=== PATIENT | male | born 1975 | race Caucasian/White ===

== ENCOUNTER 2018-05-19 17:39 | Observation (INO) ==
[2018-05-19] MEDS ORDERED: Aspirin 81 MG TAB.CHEW PO ONE (17:48)
--- NOTE | 2018-05-19 18:51 | Emergency Department Note ---
Disposition Clinical Impression: Unstable angina, Alcoholism, Hepatitis C Cirrhosis Qualifiers: Hepatic cirrhosis type: alcoholic cirrhosis Ascites presence: unspecified Qualified Code(s): K70.30 - Alcoholic cirrhosis of liver without ascites Disposition: Still a Patient Referrals: NONE,PCP [Primary Care Provider] - Forms: ED Satisfaction Letter Chest Pain HPI - General Chief Complaint: ED Chest Pain Stated Complaint: chest pain, feet swelling Time Seen by Provider: 05/19/18 17:48 Source: patient Limitations: no limitations Vital Signs Reviewed: Yes Nursing Notes Reviewed: Yes - History of Present Illness HPI Narrative: 43-year-old male present emergency room for chest pain and bilateral leg pain and swelling. Patient is a known drinker. Last alcohol intake was around 2 PM today. He does have a history of cirrhosis and hep C. He states his legs have been getting more red and swollen to the point where he is having problems even walking on his legs. He also states that he has been having chest pain for the past couple days intermittently. He does have a history of congestive heart failure. No history of coronary artery disease. No previous stent placement. No other complaints at this time. Symptoms are worse with activity. Better at rest. Severity scale (1-10): 10 - Related Data Home Medications Medication Instructions Recorded Confirmed Zolpidem [Ambien] 10 mg PO HS 05/13/18 05/13/18 Previous Rx's Medication Instructions Recorded Bumetanide [Bumex] 0.5 mg PO DAILY #5 tablet 05/15/18 Gabapentin [Neurontin] 400 mg PO TID 10 Days #30 capsule 05/15/18 LORazepam [Ativan] 1 mg PO TID PRN 5 Days #15 tablet 05/15/18 Lactobacillus [Culturelle] 1 each PO BID #4 cap.sprink 05/15/18 Magnesium Oxide [Mag-Ox] 400 mg PO DAILY #10 tablet 05/15/18 Potassium Chloride 10 meq PO DAILY #10 tab.er.prt 05/15/18 cephALEXin [Keflex] 500 mg PO TID #6 capsule 05/15/18 Allergies Allergy/AdvReac Type Severity Reaction Status Date / Time metformin Allergy See Verified 05/05/18 23:34 Comments All systems ED: reviewed and negative except as stated. Eyes: Reports: as per HPI ENT ED: Reports: as per HPI Cardiovascular: Reports: chest pain Respiratory: Reports: as per HPI Gastrointestinal: Reports: as per HPI Genitourinary: Reports: as per HPI Musculoskeletal: Reports: as per HPI, other (Bilateral leg pain) Psychiatric: Reports: as per HPI Endocrine: Reports: as per HPI Hematological/Lymphatic: Reports: as per HPI Chest Pain PMH - Past Medical History Medical history: Reports: CHF, COPD, diabetes, hepatitis, hyperlipidemia, hypertension Surgical history: Reports: orthopedic, other Psychiatric history: Reports: anxiety - Social History Smoking Status: Current every day smoker Alcohol use: Reports: heavy, recent Drug use: Reports: marijuana Physical Exam - General Limitations: no limitations General appearance: appears intoxicated - Head Head exam: atraumatic, normocephalic - Eye Eye exam: Present: normal appearance - ENT ENT exam: normal exam, normal oropharynx - Chest Chest inspection: Present: normal inspection - Respiratory Respiratory exam: Present: normal lung sounds bilaterally - Cardiovascular Cardiovascular exam: Present: normal rhythm, tachycardia - Abdominal Exam Abdominal exam: Present: soft, Non-Tender, normal bowel sounds - Extremities Exam Extremities exam: Present: tenderness, pedal edema, other (Bilateral foot and ankle pain. 2+ pitting edema in the lower extremities bilaterally.) - Neurological Exam Neurological exam: Present: alert, oriented X3 - Psychiatric Psychiatric exam: Present: normal affect - Skin Skin exam: Present: warm, dry, intact Course Vital Signs Temperature 98 F 05/19/18 17:42 Pulse Rate 124 05/19/18 17:42 Respiratory Rate 18 05/19/18 17:42 Blood Pressure 139/114 05/19/18 17:42 O2 Sat by Pulse Oximetry 97 05/19/18 17:42 Temperature 98 F 05/19/18 17:42 Pulse Rate 124 05/19/18 17:42 Respiratory Rate 18 05/19/18 17:42 Blood Pressure 139/114 05/19/18 17:42 O2 Sat by Pulse Oximetry 98 05/19/18 17:42 Oxygen Delivery Oxygen Delivery Room Air Chest Pain - Medical Records Medical records reviewed: Yes I reviewed the patient's medical records. - Lab Data Lab results reviewed: Yes I reviewed the patient's lab results. - Radiology Data Radiology results reviewed: Yes I reviewed the patient's radiology results. - EKG Data EKG attestation: Yes I reviewed and interpreted this EKG. EKG results narrative: EKG shows a rate of 110. Sinus tachycardia. NE interval 159. QRS 88. QTC 49. Left axis deviation. Nonspecific EKG
[2018-05-19] MEDS ORDERED: *HR* LORazepam 2 MG/ML VIAL IVP ONE (19:19)
[2018-05-19 19:23] LABS: Basophils # 0.1 K/mcL (0.0-0.2); Basophils % 0.8 %; Eosinophils # 0.1 K/mcL (0.0-0.6); Eosinophils % 1.8 %; Hemoglobin 15.8 g/dL (12.9-16.9); Immature Granulocytes % 0.3 % (0-4); Lymphocytes # 2.3 K/mcL (0.6-4.6); Mean Corpuscular HGB Conc 35.1 g/dL (31.6-35.5); Mean Corpuscular Hemoglobin 32.8 pg (28.0-33.3); Mean Corpuscular Volume 93.6 fL (83.0-100.0); Monocytes # 0.9 K/mcL (0.0-1.3); Monocytes % 12.1 %; Neutrophils # 3.9 K/mcL (1.6-8.9); Platelet Count 179 K/mcL (140-400); Red Blood Count 4.81 M/mcL (4.19-5.50); Red Cell Distribution Width 13.4 % (11.5-14.5)
[2018-05-19 19:32] LABS: Prothrombin Time 10.5 Seconds (9.4-12.1)
[2018-05-19 19:35] LABS: Activated Partial Thrombo Time 29.8 Seconds (26.0-36.0)
[2018-05-19 19:43] LABS: Albumin 3.6 g/dL (3.5-5.7); Albumin/Globulin Ratio 1.3 (1.1-2.2); Bilirubin,Direct 0.3 mg/dL (0.0-0.2); Bilirubin,Indirect 0.5 mg/dL (0.0-1.2); Bilirubin,Total 0.8 mg/dL (0.3-1.0); Globulin 2.7 g/dL (2.4-3.5); Total Protein 6.3 g/dL (6.4-8.9)
[2018-05-19 19:46] LABS: BUN/Creatinine Ratio 11 (6-26); Blood Urea Nitrogen 7 mg/dL (6-20); Calcium 8.5 mg/dL (8.6-10.3); Carbon Dioxide 18 mEq/L (23-29); Chloride 105 mEq/L (98-107); Glucose 113 mg/dL (70-105); Osmolality,Calculated 279 (280-300); Potassium 3.5 mEq/L (3.5-5.1); Sodium 135 mEq/L (136-145); Troponin I < 0.03 ng/mL (< 0.04); eGFR For African Americans > 60 (> 60); eGFR For Non-African Americans > 60 (> 60)
--- NOTE | 2018-05-19 21:20 | Emergency Department Note ---
Disposition Clinical Impression: Alcoholism Cirrhosis Qualifiers: Hepatic cirrhosis type: alcoholic cirrhosis Ascites presence: unspecified Qualified Code(s): K70.30 - Alcoholic cirrhosis of liver without ascites Hepatitis C Qualifiers: Viral hepatitis chronicity: chronic Hepatic coma status: without hepatic coma Qualified Code(s): B18.2 - Chronic viral hepatitis C Chest pain Qualifiers: Chest pain type: unspecified Qualified Code(s): R07.9 - Chest pain, unspecified Alcohol withdrawal Qualifiers: Complication of substance-induced condition: uncomplicated Qualified Code(s): F10.230 - Alcohol dependence with withdrawal, uncomplicated Disposition: Admitted As Inpatient Condition: Fair Referrals: NONE,PCP [Primary Care Provider] - Forms: ED Satisfaction Letter Time of Disposition: 21:48 Chest Pain HPI - General Chief Complaint: ED Chest Pain Stated Complaint: chest pain, feet swelling Time Seen by Provider: 05/19/18 17:48 Source: patient Limitations: no limitations Vital Signs Reviewed: Yes Nursing Notes Reviewed: Yes - History of Present Illness Severity scale (1-10): 10 - Related Data Home Medications Medication Instructions Recorded Confirmed Zolpidem [Ambien] 10 mg PO HS 05/13/18 05/13/18 Previous Rx's Medication Instructions Recorded Bumetanide [Bumex] 0.5 mg PO DAILY #5 tablet 05/15/18 Gabapentin [Neurontin] 400 mg PO TID 10 Days #30 capsule 05/15/18 LORazepam [Ativan] 1 mg PO TID PRN 5 Days #15 tablet 05/15/18 Lactobacillus [Culturelle] 1 each PO BID #4 cap.sprink 05/15/18 Magnesium Oxide [Mag-Ox] 400 mg PO DAILY #10 tablet 05/15/18 Potassium Chloride 10 meq PO DAILY #10 tab.er.prt 05/15/18 cephALEXin [Keflex] 500 mg PO TID #6 capsule 05/15/18 Allergies Allergy/AdvReac Type Severity Reaction Status Date / Time metformin Allergy See Verified 05/05/18 23:34 Comments Eyes: Reports: as per HPI ENT ED: Reports: as per HPI Cardiovascular: Reports: chest pain Respiratory: Reports: as per HPI Gastrointestinal: Reports: as per HPI Genitourinary: Reports: as per HPI Musculoskeletal: Reports: as per HPI, other (Bilateral leg pain) Psychiatric: Reports: as per HPI Endocrine: Reports: as per HPI Hematological/Lymphatic: Reports: as per HPI Chest Pain PMH - Past Medical History Medical history: Reports: CHF, COPD, diabetes, hepatitis, hyperlipidemia, hypertension Surgical history: Reports: orthopedic, other Psychiatric history: Reports: anxiety - Social History Smoking Status: Current every day smoker Alcohol use: Reports: heavy, recent Drug use: Reports: marijuana Physical Exam - General Limitations: no limitations General appearance: appears intoxicated Course Course Narrative: Patient seen and examined. Complaining of chest pain as well as lower extremity pain. He was recently treated as a cellulitis on his lower extremities. There is still some mild erythema but does not appear to be actual cellulitis. Cardiac workup was ordered by the day team. Lab work is unremarkable. Patient is tachycardic and withdrawing from alcohol. 1 mg of Ativan ordered. Upon discussing with the patient, patient states that he really wants help and wants to quit alcohol. He is also extremely concerned about his chest pain. Will admit for chest pain workup as well as alcohol withdrawal. I discussed with the hospitalist who has accepted patient for admission. Vital Signs Temperature 98 F 05/19/18 17:42 Pulse Rate 124 05/19/18 17:42 Respiratory Rate 18 05/19/18 17:42 Blood Pressure 139/114 05/19/18 17:42 O2 Sat by Pulse Oximetry 97 05/19/18 17:42 Temperature 98 F 05/19/18 17:42 Pulse Rate 112 05/19/18 19:43 Respiratory Rate 19 05/19/18 19:43 Blood Pressure 126/78 05/19/18 19:43 O2 Sat by Pulse Oximetry 97 05/19/18 19:43 Oxygen Delivery Oxygen Delivery Room Air Chest Pain - Medical Records Medical records reviewed: Yes I reviewed the patient's medical records. - Lab Data Lab results reviewed: Yes I reviewed the patient's lab results. Result diagrams: 05/19/18 19:09 05/19/18 19:09 Lab Results 05/19/18 05/19/18 05/19/18 Range/Units 19:09 19:09 19:09 WBC (4.3-11.1) K/mcL RBC (4.19-5.50) M/mcL Hgb (12.9-16.9) g/dL Hct (37.5-50.1) % MCV (83.0-100.0) fL MCH (28.0-33.3) pg MCHC (31.6-35.5) g/dL RDW (11.5-14.5) % Plt Count (140-400) K/mcL MPV (9.4-12.4) fL Immature Gran % (0-4) % Seg Neutrophils % % Lymphocytes % % Monocytes % % Eosinophils % % Basophils % % Neutrophils # (1.6-8.9) K/mcL Lymphocytes # (0.6-4.6) K/mcL Monocytes # (0.0-1.3) K/mcL Eosinophils # (0.0-0.6) K/mcL Basophils # (0.0-0.2) K/mcL PT 10.5 (9.4-12.1) Seconds INR 1.0 APTT 29.8 (26.0-36.0) Seconds Sodium (136-145) mEq/L Potassium (3.5-5.1) mEq/L Chloride (98-107) mEq/L Carbon Dioxide (23-29) mEq/L BUN (6-20) mg/dL Creatinine (0.70-1.30) mg/dL Est GFR ( Amer) (> 60) Est GFR (Non-Af Amer) (> 60) BUN/Creatinine Ratio (6-26) Glucose (70-105) mg/dL Calculated Osmolality (280-300) Calcium (8.6-10.3) mg/dL Total Bilirubin 0.8 (0.3-1.0) mg/dL Direct Bilirubin 0.3 H (0.0-0.2) mg/dL Indirect Bilirubin 0.5 (0.0-1.2) mg/dL AST 87 H (13-39) Units/L ALT 70 H (7-52) Units/L Alkaline Phosphatase 117 H (34-104) Units/L Ammonia 50 (16-53) mcmol/L Troponin I (< 0.04) ng/mL B-Natriuretic Peptide (Less than 100) pg/mL Serum Total Protein 6.3 L (6.4-8.9) g/dL Albumin 3.6 (3.5-5.7) g/dL Globulin 2.7 (2.4-3.5) g/dL Albumin/Globulin Ratio 1.3 (1.1-2.2) Lipase (11-82) Units/L 05/19/18 05/19/18 05/19/18 Range/Units 19:09 19:09 19:09 WBC 7.3 D (4.3-11.1) K/mcL RBC 4.81 (4.19-5.50) M/mcL Hgb 15.8 D (12.9-16.9) g/dL Hct 45.0 (37.5-50.1) % MCV 93.6 (83.0-100.0) fL MCH 32.8 (28.0-33.3) pg MCHC 35.1 (31.6-35.5) g/dL RDW 13.4 (11.5-14.5) % Plt Count 179 (140-400) K/mcL MPV 10.0 (9.4-12.4) fL Immature Gran % 0.3 (0-4) % Seg Neutrophils % 54.0 % Lymphocytes % 31.0 % Monocytes % 12.1 % Eosinophils % 1.8 % Basophils % 0.8 % Neutrophils # 3.9 (1.6-8.9) K/mcL Lymphocytes # 2.3 (0.6-4.6) K/mcL Monocytes # 0.9 (0.0-1.3) K/mcL Eosinophils # 0.1 (0.0-0.6) K/mcL Basophils # 0.1 (0.0-0.2) K/mcL PT (9.4-12.1) Seconds INR APTT (26.0-36.0) Seconds Sodium (136-145) mEq/L Potassium (3.5-5.1) mEq/L Chloride (98-107) mEq/L Carbon Dioxide (23-29) mEq/L BUN (6-20) mg/dL Creatinine (0.70-1.30) mg/dL Est GFR ( Amer) (> 60) Est GFR (Non-Af Amer) (> 60) BUN/Creatinine Ratio (6-26) Glucose (70-105) mg/dL Calculated Osmolality (280-300) Calcium (8.6-10.3) mg/dL Total Bilirubin (0.3-1.0) mg/dL Direct Bilirubin (0.0-0.2) mg/dL Indirect Bilirubin (0.0-1.2) mg/dL AST (13-39) Units/L ALT (7-52) Units/L Alkaline Phosphatase (34-104) Units/L Ammonia (16-53) mcmol/L Troponin I (< 0.04) ng/mL B-Natriuretic Peptide 7 (Less than 100) pg/mL Serum Total Protein (6.4-8.9) g/dL Albumin (3.5-5.7) g/dL Globulin (2.4-3.5) g/dL Albumin/Globulin Ratio (1.1-2.2) Lipase 40 (11-82) Units/L 05/19/18 Range/Units 19:09 WBC (4.3-11.1) K/mcL RBC (4.19-5.50) M/mcL Hgb (12.9-16.9) g/dL Hct (37.5-50.1) % MCV (83.0-100.0) fL MCH (28.0-33.3) pg MCHC (31.6-35.5) g/dL RDW (11.5-14.5) % Plt Count (140-400) K/mcL MPV (9.4-12.4) fL Immature Gran % (0-4) % Seg Neutrophils % % Lymphocytes % % Monocytes % % Eosinophils % % Basophils % % Neutrophils # (1.6-8.9) K/mcL Lymphocytes # (0.6-4.6) K/mcL Monocytes # (0.0-1.3) K/mcL Eosinophils # (0.0-0.6) K/mcL Basophils # (0.0-0.2) K/mcL PT (9.4-12.1) Seconds INR APTT (26.0-36.0) Seconds Sodium 135 L (136-145) mEq/L Potassium 3.5 (3.5-5.1) mEq/L Chloride 105 (98-107) mEq/L Carbon Dioxide 18 L (23-29) mEq/L BUN 7 (6-20) mg/dL Creatinine 0.64 L (0.70-1.30) mg/dL Est GFR ( Amer) > 60 (> 60) Est GFR (Non-Af Amer) > 60 (> 60) BUN/Creatinine Ratio 11 (6-26) Glucose 113 H (70-105) mg/dL Calculated Osmolality 279 L (280-300) Calcium 8.5 L (8.6-10.3) mg/dL Total Bilirubin (0.3-1.0) mg/dL Direct Bilirubin (0.0-0.2) mg/dL Indirect Bilirubin (0.0-1.2) mg/dL AST (13-39) Units/L ALT (7-52) Units/L Alkaline Phosphatase (34-104) Units/L Ammonia (16-53) mcmol/L Troponin I < 0.03 (< 0.04) ng/mL B-Natriuretic Peptide (Less than 100) pg/mL Serum Total Protein (6.4-8.9) g/dL Albumin (3.5-5.7) g/dL Globulin (2.4-3.5) g/dL Albumin/Globulin Ratio (1.1-2.2) Lipase (11-82) Units/L - Radiology Data Radiology results reviewed: Yes I reviewed the patient's radiology results. Chest X-Ray 05/19/18 17:48 IMPRESSION: No acute process. D/ / Rex Mccormack MD / Rex Mccormack MD Interpreting Provider: Rex Mccormack MD - EKG Data EKG attestation: Yes I reviewed and interpreted this EKG. EKG results narrative: EKG done at 1805 shows sinus tachycardia with a rate of [address] elevation or depression. Left axis deviation. Unchanged from prior EKG done 05/19/2018. Heart Score - Score History: Slightly Suspicious EKG: Normal Age: Less than 45 Risk Factors: 1-2 risk factors Troponin: Less than normal limit HEART Score Total: 1
--- NOTE | 2018-05-19 21:33 | Emergency Department Note ---
Disposition Clinical Impression: Alcoholism Cirrhosis Qualifiers: Hepatic cirrhosis type: alcoholic cirrhosis Ascites presence: unspecified Qualified Code(s): K70.30 - Alcoholic cirrhosis of liver without ascites Hepatitis C Qualifiers: Viral hepatitis chronicity: chronic Hepatic coma status: without hepatic coma Qualified Code(s): B18.2 - Chronic viral hepatitis C Chest pain Qualifiers: Chest pain type: unspecified Qualified Code(s): R07.9 - Chest pain, unspecified Alcohol withdrawal Qualifiers: Complication of substance-induced condition: uncomplicated Qualified Code(s): F10.230 - Alcohol dependence with withdrawal, uncomplicated Disposition: Admitted As Inpatient Condition: Fair General Adult HPI - General Chief complaint: ED Chest Pain Stated complaint: chest pain, feet swelling Time Seen by Provider: 05/19/18 17:48 Source: patient Limitations: no limitations Nursing Notes Reviewed: Yes Vital Signs Reviewed: Yes - History of Present Illness Pain Scale: 10 - Related Data Home Medications Medication Instructions Recorded Confirmed Zolpidem [Ambien] 10 mg PO HS 05/13/18 05/13/18 Previous Rx's Medication Instructions Recorded Bumetanide [Bumex] 0.5 mg PO DAILY #5 tablet 05/15/18 Gabapentin [Neurontin] 400 mg PO TID 10 Days #30 capsule 05/15/18 LORazepam [Ativan] 1 mg PO TID PRN 5 Days #15 tablet 05/15/18 Lactobacillus [Culturelle] 1 each PO BID #4 cap.sprink 05/15/18 Magnesium Oxide [Mag-Ox] 400 mg PO DAILY #10 tablet 05/15/18 Potassium Chloride 10 meq PO DAILY #10 tab.er.prt 05/15/18 cephALEXin [Keflex] 500 mg PO TID #6 capsule 05/15/18 Allergies Allergy/AdvReac Type Severity Reaction Status Date / Time metformin Allergy See Verified 05/05/18 23:34 Comments Eyes: Reports: as per HPI ENT ED: Reports: as per HPI Cardiovascular: Reports: chest pain Respiratory: Reports: as per HPI Gastrointestinal: Reports: as per HPI Genitourinary: Reports: as per HPI Musculoskeletal: Reports: as per HPI, other (Bilateral leg pain) Psychiatric: Reports: as per HPI Endocrine: Reports: as per HPI Hematological/Lymphatic: Reports: as per HPI Past Medical History - Past Medical History Medical history: Reports: CHF, COPD, diabetes, hepatitis, hyperlipidemia, hypertension Surgical history: Reports: orthopedic, other Psychiatric history: Reports: anxiety - Social History Smoking Status: Current every day smoker Smokeless Tobacco Status: No Alcohol use: Reports: heavy, recent Drug use: Reports: marijuana Physical Exam - General Limitations: no limitations General appearance: appears intoxicated Course Vital Signs Temperature 98 F 05/19/18 17:42 Pulse Rate 124 05/19/18 17:42 Respiratory Rate 18 05/19/18 17:42 Blood Pressure 139/114 05/19/18 17:42 O2 Sat by Pulse Oximetry 97 05/19/18 17:42 Temperature 98 F 05/19/18 17:42 Pulse Rate 112 05/19/18 19:43 Respiratory Rate 18 05/19/18 22:12 Blood Pressure 121/97 05/19/18 22:12 O2 Sat by Pulse Oximetry 97 05/19/18 19:43 Oxygen Delivery Oxygen Delivery Room Air Medical Decision Making - Lab Data Result diagrams: 05/19/18 19:09 05/19/18 19:09 Lab Results 05/19/18 05/19/18 05/19/18 Range/Units 19:09 19:09 19:09 WBC (4.3-11.1) K/mcL RBC (4.19-5.50) M/mcL Hgb (12.9-16.9) g/dL Hct (37.5-50.1) % MCV (83.0-100.0) fL MCH (28.0-33.3) pg MCHC (31.6-35.5) g/dL RDW (11.5-14.5) % Plt Count (140-400) K/mcL MPV (9.4-12.4) fL Immature Gran % (0-4) % Seg Neutrophils % % Lymphocytes % % Monocytes % % Eosinophils % % Basophils % % Neutrophils # (1.6-8.9) K/mcL Lymphocytes # (0.6-4.6) K/mcL Monocytes # (0.0-1.3) K/mcL Eosinophils # (0.0-0.6) K/mcL Basophils # (0.0-0.2) K/mcL PT 10.5 (9.4-12.1) Seconds INR 1.0 APTT 29.8 (26.0-36.0) Seconds Sodium (136-145) mEq/L Potassium (3.5-5.1) mEq/L Chloride (98-107) mEq/L Carbon Dioxide (23-29) mEq/L BUN (6-20) mg/dL Creatinine (0.70-1.30) mg/dL Est GFR ( Amer) (> 60) Est GFR (Non-Af Amer) (> 60) BUN/Creatinine Ratio (6-26) Glucose (70-105) mg/dL Calculated Osmolality (280-300) Calcium (8.6-10.3) mg/dL Total Bilirubin 0.8 (0.3-1.0) mg/dL Direct Bilirubin 0.3 H (0.0-0.2) mg/dL Indirect Bilirubin 0.5 (0.0-1.2) mg/dL AST 87 H (13-39) Units/L ALT 70 H (7-52) Units/L Alkaline Phosphatase 117 H (34-104) Units/L Ammonia 50 (16-53) mcmol/L Troponin I (< 0.04) ng/mL B-Natriuretic Peptide (Less than 100) pg/mL Serum Total Protein 6.3 L (6.4-8.9) g/dL Albumin 3.6 (3.5-5.7) g/dL Globulin 2.7 (2.4-3.5) g/dL Albumin/Globulin Ratio 1.3 (1.1-2.2) Lipase (11-82) Units/L 05/19/18 05/19/18 05/19/18 Range/Units 19:09 19:09 19:09 WBC 7.3 D (4.3-11.1) K/mcL RBC 4.81 (4.19-5.50) M/mcL Hgb 15.8 D (12.9-16.9) g/dL Hct 45.0 (37.5-50.1) % MCV 93.6 (83.0-100.0) fL MCH 32.8 (28.0-33.3) pg MCHC 35.1 (31.6-35.5) g/dL RDW 13.4 (11.5-14.5) % Plt Count 179 (140-400) K/mcL MPV 10.0 (9.4-12.4) fL Immature Gran % 0.3 (0-4) % Seg Neutrophils % 54.0 % Lymphocytes % 31.0 % Monocytes % 12.1 % Eosinophils % 1.8 % Basophils % 0.8 % Neutrophils # 3.9 (1.6-8.9) K/mcL Lymphocytes # 2.3 (0.6-4.6) K/mcL Monocytes # 0.9 (0.0-1.3) K/mcL Eosinophils # 0.1 (0.0-0.6) K/mcL Basophils # 0.1 (0.0-0.2) K/mcL PT (9.4-12.1) Seconds INR APTT (26.0-36.0) Seconds Sodium (136-145) mEq/L Potassium (3.5-5.1) mEq/L Chloride (98-107) mEq/L Carbon Dioxide (23-29) mEq/L BUN (6-20) mg/dL Creatinine (0.70-1.30) mg/dL Est GFR ( Amer) (> 60) Est GFR (Non-Af Amer) (> 60) BUN/Creatinine Ratio (6-26) Glucose (70-105) mg/dL Calculated Osmolality (280-300) Calcium (8.6-10.3) mg/dL Total Bilirubin (0.3-1.0) mg/dL Direct Bilirubin (0.0-0.2) mg/dL Indirect Bilirubin (0.0-1.2) mg/dL AST (13-39) Units/L ALT (7-52) Units/L Alkaline Phosphatase (34-104) Units/L Ammonia (16-53) mcmol/L Troponin I (< 0.04) ng/mL B-Natriuretic Peptide 7 (Less than 100) pg/mL Serum Total Protein (6.4-8.9) g/dL Albumin (3.5-5.7) g/dL Globulin (2.4-3.5) g/dL Albumin/Globulin Ratio (1.1-2.2) Lipase 40 (11-82) Units/L 05/19/ Range/Units 19:09 WBC (4.3-11.1) K/mcL RBC (4.19-5.50) M/mcL Hgb (12.9-16.9) g/dL Hct (37.5-50.1) % MCV (83.0-100.0) fL MCH (28.0-33.3) pg MCHC (31.6-35.5) g/dL RDW (11.5-14.5) % Plt Count (140-400) K/mcL MPV (9.4-12.4) fL Immature Gran % (0-4) % Seg Neutrophils % % Lymphocytes % % Monocytes % % Eosinophils % % Basophils % % Neutrophils # (1.6-8.9) K/mcL Lymphocytes # (0.6-4.6) K/mcL Monocytes # (0.0-1.3) K/mcL Eosinophils # (0.0-0.6) K/mcL Basophils # (0.0-0.2) K/mcL PT (9.4-12.1) Seconds INR APTT (26.0-36.0) Seconds Sodium 135 L (136-145) mEq/L Potassium 3.5 (3.5-5.1) mEq/L Chloride 105 (98-107) mEq/L Carbon Dioxide 18 L (23-29) mEq/L BUN 7 (6-20) mg/dL Creatinine 0.64 L (0.70-1.30) mg/dL Est GFR ( Amer) > 60 (> 60) Est GFR (Non-Af Amer) > 60 (> 60) BUN/Creatinine Ratio 11 (6-26) Glucose 113 H (70-105) mg/dL Calculated Osmolality 279 L (280-300) Calcium 8.5 L (8.6-10.3) mg/dL Total Bilirubin (0.3-1.0) mg/dL Direct Bilirubin (0.0-0.2) mg/dL Indirect Bilirubin (0.0-1.2) mg/dL AST (13-39) Units/L ALT (7-52) Units/L Alkaline Phosphatase (34-104) Units/L Ammonia (16-53) mcmol/L Troponin I < 0.03 (< 0.04) ng/mL B-Natriuretic Peptide (Less than 100) pg/mL Serum Total Protein (6.4-8.9) g/dL Albumin (3.5-5.7) g/dL Globulin (2.4-3.5) g/dL Albumin/Globulin Ratio (1.1-2.2) Lipase (11-82) Units/L Attestation Statement - Attestation Attestation: I, Kameron Leos MD, personally evaluated this patient and discussed their management with the resident physician. I reviewed the resident's note and agree with the documented findings, medical decision making, and plan of care. This patient was signed out at shift change from Dr. Mccormack. Please refer to his note for complete details of the history and physical examination. Recently in the hospital and discharged about 4 days ago. He returns today complaining of chest pains for the past several days. He also complains of increased pain and swelling and redness in the lower extremities. He states he received IV antibiotics while in the hospital and the legs improved. He was discharged with oral Keflex for 2 days and states that since then the legs have become more red and swollen and painful. Patient has chronic alcoholic and states that he drinks whiskey all day every day. His last drink today was about 2 PM and he complains of feeling shaky and jittery and anxious. He states he does want to stop drinking alcohol. On examination patient is a well-developed well-nourished male in no acute distress. He is alert and oriented 3. There is no cyanosis or diaphoresis. He does appear a little anxious and is mildly shaky. Breath sounds are clear and equal bilaterally. Heart regular with a mild tachycardia. Abdomen is soft and nontender with normal bowel sounds. Trace pedal edema bilaterally with some erythema of the lower extremities bilaterally and slight warmth to touch. Labs reviewed. Chest x-ray negative. The hospitalist, Dr. Rey, was consulted and accepted admission of the patient.
--- NOTE | 2018-05-19 22:03 | Internal Med History&Physical ---
Date of Encounter: 05/19/18 Time of Encounter: 22:05 Internal Medicine - H&P: HPI Admitted From: Emergency Dept Plans for Post Hospital Care: Home History of present illness: Mr. Alvarez is a 43 year old male with past medical hx of cirrhosis, hepatitis C, substance abuser (pt states he quit), ETOH withdrawal, CHF, HTN, and smoker. {Pt states he came in because his feet where hurting. Reports that B/L pain is about "20/10." He states " My feet feel infected." Pt states he gets chest pain off and on. Did have some chest discomfort today about 6/10 was SOB and diaphoretic, pain was non-radiating. Pt also presents with hx of alcohol dependence. States he usually drinks from about 5:30 am till night time. Drinks about a 5th and 3 packs of beers (malt liquor) in one day. He denies hx of ETOH withdrawal but does report one time hx seizure. Admits to nausea bu denies vomiting or diarrhea. Also has tremors. Denies prior hx of paracentesis, however is abdomen is distended. He is a current smoker and smokes a pack a day for about 25 years. CODE STATUS FULL In ED CBC wnl. BMP Na 135, BUN 7, Cr 0.64, glucose 113, AST 87, ALT 70, Alk phos 117. Troponin <0.03. Chest x ray IMPRESSION: No acute process. Past Med Surg Social Fam HX - Past Medical History Medical history: CHF, COPD, diabetes, hepatitis, hyperlipidemia, hypertension Psychiatric history: anxiety - Past Surgical History Surgical History: orthopedic, other Additional surgical history: Tongue sx. low back surgery. Uriah rt lower leg. plate in right ankle - Social History Smoking Status: Current every day smoker Smokeless Tobacco Status: No Alcohol use: heavy, recent Drug use: marijuana Internal Medicine - H&P: Meds Zolpidem [Ambien] 10 mg PO HS 05/13/18 [History] Bumetanide [Bumex] 0.5 mg PO DAILY #5 tablet 05/15/18 [Rx] Gabapentin [Neurontin] 400 mg PO TID 10 Days #30 capsule 05/15/18 [Rx] LORazepam [Ativan] 1 mg PO TID PRN 5 Days #15 tablet 05/15/18 [Rx] Lactobacillus [Culturelle] 1 each PO BID #4 cap.sprink 05/15/18 [Rx] Magnesium Oxide [Mag-Ox] 400 mg PO DAILY #10 tablet 05/15/18 [Rx] Potassium Chloride 10 meq PO DAILY #10 tab.er.prt 05/15/18 [Rx] cephALEXin [Keflex] 500 mg PO TID #6 capsule 05/15/18 [Rx] 3 Allergy/AdvReac Type Severity Reaction Status Date / Time metformin Allergy See Verified 05/05/18 23:34 Comments All Systems PM: A 10-system review of systems was performed and is negative for pertinent findings except as documented above in the HPI. - Constitutional Vitals: Temp Pulse Resp BP Pulse Ox 98 F 112 19 126/78 97 05/19/18 17:42 05/19/18 19:43 05/19/18 19:43 05/19/18 19:43 05/19/18 19:43 General appearance: Present: A&O X 3, no acute distress - Head Head exam: Present: atraumatic, normocephalic - Eye Eye exam: Present: PERRL, conjuntiva pink, sclera anicteric Pupils: Present: PERRL Additional comments: blood shot eyes, conjunctiva red - Neck Neck exam general surgery: Present: supple, trachea midline. Absent: lymphadenopathy - Respiratory Respiratory exam: Present: CTAB. Absent: accessory muscle use, rales, rhonchi, wheezes - Cardiovascular Cardiovascular exam: Present: RRR, +S1, +S2, tachycardia. Absent: diastolic murmur, gallop, rubs, systolic murmur - GI/Abdominal GI/Abdominal exam: Present: distended, normal bowel sounds, soft, no peritoneal signs. Absent: tenderness - Extremities Exam Extremities exam: Present: pedal edema, warm, radial pulses palpable and symmetrical. Absent: calf tenderness, cyanotic Additional comments: bilateral LE indurated, erythema, painful to touch, and warm - Neurological Exam Neurological exam: Present: CN II-XII intact, oriented X3, no focal deficits. Absent: pronater drift, facial droop, speech deficit - Skin Skin exam: Present: dry, intact Internal Med - H&P Results - Labs CBC & Chem 7: 05/19/18 19:09 05/19/18 19:09 - Assessment and plan (1) Cellulitis Current Visit: No Status: Acute Assessment and plan: Will place on Vancomycin and Zosyn for now. Qualifiers: Site of cellulitis: extremity Site of cellulitis of extremity: lower extremity Laterality: unspecified laterality Qualified Code(s): L03.119 - Cellulitis of unspecified part of limb (2) Elevated transaminase level Current Visit: No Status: Acute Assessment and plan: Will check LFT's in am. (3) Cirrhosis Current Visit: Yes Status: Acute Assessment and plan: Follow up out pt with PCP. Qualifiers: Hepatic cirrhosis type: alcoholic cirrhosis Ascites presence: unspecified Qualified Code(s): K70.30 - Alcoholic cirrhosis of liver without ascites (4) Chest pain Current Visit: Yes Status: Acute Assessment and plan: Will cycle troponin. ASA daily. Nitro SL prn. Oxygen prn as needed. Qualifiers: Chest pain type: unspecified Qualified Code(s): R07.9 - Chest pain, unspecified (5) Hepatitis C Current Visit: Yes Status: Acute Assessment and plan: Follow up with PCP out pt. Qualifiers: Viral hepatitis chronicity: chronic Hepatic coma status: without hepatic coma Qualified Code(s): B18.2 - Chronic viral hepatitis C (6) Alcohol dependence Current Visit: Yes Status: Acute Assessment and plan: Cessation strongly advised. Qualifiers: Qualified Code(s): F10.20 - Alcohol dependence, uncomplicated (7) Edema Current Visit: Yes Status: Acute Assessment and plan: Will give trial of Lasix 20 mg IV x one. Will check LE doppler and will place on antibiotic. Qualifiers: Qualified Code(s): R60.9 - Edema, unspecified (8) Increased abdominal girth Current Visit: Yes Status: Acute Assessment and plan: Will check abdominal US especially in light of elevated LFT's - Time Spent With Patient Total time spent is greater than 50% in coordination of care (as documented) at patient's floor/unit and/or counseling patient: 25 - 35 minutes
[2018-05-19] MEDS ORDERED: Nitroglycerin 0.4 MG TAB.SUBL SL PRN (22:39)
[2018-05-19] MEDS ORDERED: Acetaminophen 325 MG TABLET PO PRN (22:39)
[2018-05-19] MEDS ORDERED: Naloxone 0.4 MG/ML INJ IVP PRN (22:39)
[2018-05-19] MEDS ORDERED: Furosemide 20 MG/2 ML VIAL IVP ONE (22:51)
[2018-05-19] MEDS: *HR* LORazepam 2 MG/ML VIAL IVP PRN (23:41)
[2018-05-20] MEDS: Piperacillin/Tazobactam 3.375 GM in 0.9 % Sodium Chloride Mini Bag 100 ML IVPB SCH ×3 (00:18→17:37)
[2018-05-20] MEDS ORDERED: *HR* OxyCODONE/APAP 5/325 TABLET PO ONE (00:28)
[2018-05-20 01:34] LABS: Amphetamine Screen,Urine Positive ng/mL (Cutoff=1000); Barbiturate Screen,Urine Negative ng/mL (Cutoff=200); Benzodiazepines Screen,Urine Negative ng/mL (Cutoff=200); Cannabinoid Screen,Urine Positive ng/mL (Cutoff = 50); Cocaine Screen,Urine Negative ng/mL (Cutoff= 300); Opiate Screen,Urine Negative ng/mL (Cutoff=300); Phencyclidine Screen,Urine Negative ng/mL (Cutoff=25)
[2018-05-20] MEDS: *HR* LORazepam 2 MG/ML VIAL IVP PRN ×2 (01:40→06:43)
[2018-05-20 05:27] LABS: Basophils # 0.1 K/mcL (0.0-0.2); Basophils % 1.1 %; Eosinophils # 0.1 K/mcL (0.0-0.6); Eosinophils % 2.1 %; Hemoglobin 15.3 g/dL (12.9-16.9); Immature Granulocytes % 0.2 % (0-4); Lymphocytes # 1.5 K/mcL (0.6-4.6); Lymphocytes % 32.1 %; Mean Corpuscular HGB Conc 34.8 g/dL (31.6-35.5); Mean Corpuscular Hemoglobin 32.5 pg (28.0-33.3); Mean Corpuscular Volume 93.4 fL (83.0-100.0); Mean Platelet Volume 10.5 fL (9.4-12.4); Monocytes # 0.7 K/mcL (0.0-1.3); Monocytes % 14.2 %; Neutrophils # 2.4 K/mcL (1.6-8.9); Platelet Count 160 K/mcL (140-400); Red Blood Count 4.71 M/mcL (4.19-5.50); Red Cell Distribution Width 13.4 % (11.5-14.5); Segmented Neutrophils % 50.3 %
[2018-05-20 05:32] LABS: Prothrombin Time 10.9 Seconds (9.4-12.1)
[2018-05-20 05:47] LABS: Alanine Aminotransferase 69 Units/L (7-52); Albumin 3.5 g/dL (3.5-5.7); Albumin/Globulin Ratio 1.3 (1.1-2.2); Alkaline Phosphatase 121 Units/L (34-104); Aspartate Amino Transferase 85 Units/L (13-39); BUN/Creatinine Ratio 14 (6-26); Bilirubin,Total 1.2 mg/dL (0.3-1.0); Blood Urea Nitrogen 10 mg/dL (6-20); Calcium 8.7 mg/dL (8.6-10.3); Carbon Dioxide 22 mEq/L (23-29); Chloride 104 mEq/L (98-107); Chol/HDL Ratio 3.5 (0-4.9); Cholesterol 150 mg/dL (< 200); Globulin 2.7 g/dL (2.4-3.5); Glucose 117 mg/dL (70-105); HDL Cholesterol 43 mg/dL (40-59); LDL Cholesterol,Calculated 80 mg/dL (0-99); Magnesium 1.8 mg/dL (1.6-2.6); Osmolality,Calculated 284 (280-300); Potassium 3.9 mEq/L (3.5-5.1); Sodium 137 mEq/L (136-145); Total Protein 6.2 g/dL (6.4-8.9); Triglycerides 134 mg/dL (< 150); eGFR For African Americans > 60 (> 60); eGFR For Non-African Americans > 60 (> 60)
[2018-05-20] MEDS: Folic Acid 1 MG TABLET PO SCH (10:20)
[2018-05-20] MEDS: Magnesium Oxide 400 MG TABLET PO SCH (10:20)
[2018-05-20] MEDS: Aspirin 81 MG TAB.CHEW PO SCH (10:20)
[2018-05-20] MEDS: Thiamine (B-1) 100 MG TABLET PO SCH (10:20)
[2018-05-20] MEDS: Gabapentin 400 MG CAPSULE PO SCH ×3 (10:20→20:42)
[2018-05-20] MEDS: Lactobacillus 1 EACH CAP.SPRINK PO SCH ×2 (10:20→20:42)
[2018-05-20] MEDS: Bumetanide 1 MG TABLET PO SCH (10:37)
--- NOTE | 2018-05-20 14:12 | Internal Med Progress Note ---
Date of Encounter: 05/20/18 Time of Encounter: 10:10 - Assessment and plan (1) DVT prophylaxis Current Visit: Yes Status: Acute Assessment and plan: Lovenox SQ. Encourage pt up to chair, ambulate. (2) Alcohol dependence Current Visit: Yes Status: Chronic Assessment and plan: Pt states that he drinks all day every day and drinks 45 beers and a 1/5 of whiskey daily. Pt wants to detox, does not want to go to rehab and says he will think about AA meetings. Qualifiers: Substance use status: unspecified alcohol-induced disorder Qualified Code(s ): F10.29 - Alcohol dependence with unspecified alcohol-induced disorder (3) Alcohol withdrawal Current Visit: Yes Status: Acute Assessment and plan: CIWA protocol available. Librium scheduled Seizure precautions/telemetry Pt states that he is not drinking or eating well, will watch labs and use IVF hydration prn. Qualifiers: Complication of substance-induced condition: uncomplicated Qualified Code(s ): F10.230 - Alcohol dependence with withdrawal, uncomplicated (4) Chest pain Current Visit: Yes Status: Acute Assessment and plan: Pt denies chest pain today. Continue to assess Continue telemetry Qualifiers: Chest pain type: unspecified Qualified Code(s): R07.9 - Chest pain, unspecified (5) Cirrhosis Current Visit: Yes Status: Acute Assessment and plan: Chronic. Follow with PCP. Pt with increasing abdominal girth recently and elevated transaminases. Liver ultrasound is ordered and pending. Qualifiers: Hepatic cirrhosis type: alcoholic cirrhosis Ascites presence: unspecified Qualified Code(s): K70.30 - Alcoholic cirrhosis of liver without ascites (6) Edema Current Visit: Yes Status: Chronic Assessment and plan: Pt with BLE edema, likely due to cirrhosis and chronic alcoholism. BLE venous doppler negative for DVT or SVT. Received 1 dose of Lasix 20mg IV, pt is on Bumex 0.5mg, as well. Continue IV antibiotics for cellulitis, elevate BLE. Qualifiers: Edema type: unspecified Qualified Code(s): R60.9 - Edema, unspecified (7) Hepatitis C Current Visit: Yes Status: Acute Assessment and plan: Chronic. Continue to follow with PCP. Qualifiers: Viral hepatitis chronicity: chronic Hepatic coma status: without hepatic coma Qualified Code(s): B18.2 - Chronic viral hepatitis C (8) Increased abdominal girth Current Visit: Yes Status: Acute Assessment and plan: Pt reports increasing abdominal girth recently. Pt with known hepatitis and cirrhosis with elevated transaminases. Liver ultrasound is ordered and pending. Monitor labs and vitals. (9) Alcoholism Current Visit: Yes Status: Chronic Assessment and plan: Chronic. Plan as above. (10) Cellulitis Current Visit: Yes Status: Acute Assessment and plan: BLE. Pt reports BLE foot pain and BLE edema and redness. Pt with scattered, round, scabbed areas to BLE and bilateral feet. Pt states that it feels like something is biting him. Continue IV Vancomycin and Zosyn. BLE venous doppler negative. Qualifiers: Site of cellulitis: extremity Site of cellulitis of extremity: lower extremity Laterality: unspecified laterality Qualified Code(s): L03.119 - Cellulitis of unspecified part of limb (11) Elevated transaminase level Current Visit: Yes Status: Acute Assessment and plan: Likely chronic due to chronic hepatic disease. Slight improvement overnight. Continue to monitor labs Liver ultrasound is ordered and pending. - Time Spent With Patient Total time spent is greater than 50% in coordination of care (as documented) at patient's floor/unit and/or counseling patient: less than 15 minutes - Subjective Interval history: Pt was seen and assessed at 1010. Pt is alert and awake, oriented. Reports that his feet "feel like they're going to explode." Pt reports that he normally takes "Perc 10s" at home, but was willing to take "Perc 5s". He states that he is unable to take tylenol or motrin due to his cirrhosis. We discussed his OARRS report and he was agreeable to Toradol. Pt denies chest pain, SOB, n/v/d, diaphoresis, or abdominal pain. - Constitutional Vitals: Temp Pulse Resp BP Pulse Ox 98.4 F 96 18 120/82 98 05/20/18 11:38 05/20/18 11:38 05/20/18 11:38 05/20/18 11:38 05/20/18 11:38 General appearance: Present: cooperative, A&O X 3, pleasant, no acute distress, answers questions appropriately - Head Head exam: Present: atraumatic, normal inspection, normocephalic - Eye Eye exam: Present: normal appearance, conjuntiva pink, sclera anicteric - Neck Neck exam general surgery: Present: supple, trachea midline. Absent: lymphadenopathy - Respiratory Respiratory exam: Present: CTAB. Absent: accessory muscle use, chest wall tenderness, decreased breath sounds, rales, respiratory distress, rhonchi, wheezes - Cardiovascular Cardiovascular exam: Present: RRR, +S1, +S2. Absent: diastolic murmur, gallop, rubs, systolic murmur - GI/Abdominal GI/Abdominal exam: Present: distended, hepatomegaly, hyperactive bowel sounds, soft, no peritoneal signs. Absent: tenderness - Extremities Exam Extremities exam: Present: tenderness, warm, radial pulses palpable and symmetrical. Absent: calf tenderness, cyanotic, normal capillary refill, normal inspection, pedal edema - Neurological Exam Neurological exam: Present: alert, oriented X3, no focal deficits. Absent: facial droop, speech deficit - Skin Skin exam: Present: dry, intact, normal color, warm. Absent: rash Internal Medicine: Result - Labs CBC & Chem 7: 05/20/18 04:51 05/20/18 04:51 Labs: Short CBC 05/20/18 Range/Units 04:51 WBC 4.7 (4.3-11.1) K/mcL Hgb 15.3 (12.9-16.9) g/dL Hct 44.0 (37.5-50.1) % Plt Count 160 (140-400) K/mcL Neutrophils # 2.4 (1.6-8.9) K/mcL BMP 05/20/18 04:51 Sodium 137 Potassium 3.9 Chloride 104 Carbon Dioxide 22 L BUN 10 Creatinine 0.69 L Glucose 117 H Calcium 8.7 Cardiac Enzymes 05/19/18 05/20/18 05/20/18 Range/Units 22:58 04:51 10:50 Troponin I < 0.03 < 0.03 < 0.03 (< 0.04) ng/mL Liver Function 05/20/18 Range/Units 04:51 Total Bilirubin 1.2 H (0.3-1.0) mg/dL AST 85 H (13-39) Units/L ALT 69 H (7-52) Units/L Alkaline Phosphatase 121 H (34-104) Units/L Albumin 3.5 (3.5-5.7) g/dL - ABG Interpretation ABG results: PT/INR, D-dimer PT 10.9 Seconds (9.4-12.1) 05/20/18 04:51 Consult Discharge Plan - Plan Referrals: NONE,PCP [Primary Care Provider] -
[2018-05-20] MEDS: Nicotine 14 MG PATCH.TD24 TD SCH (16:06)
[2018-05-20] MEDS: Ketorolac 30 MG/ML VIAL IVP PRN ×2 (16:06→21:58)
[2018-05-20] MEDS: 0.9 % Sodium Chloride 1,000 ML IVC SCH (16:06)
[2018-05-20] MEDS ORDERED: Thiamine (B-1) 100 MG, Folic Acid 1 MG, MVI, adult with vitamin K 10 ML in 0.9 % Sodi... IVPB SCH (18:00)
[2018-05-21] MEDS: Piperacillin/Tazobactam 3.375 GM in 0.9 % Sodium Chloride Mini Bag 100 ML IVPB SCH ×2 (01:16→08:31)
[2018-05-21] MEDS: Ketorolac 30 MG/ML VIAL IVP PRN ×2 (03:54→09:36)
[2018-05-21] MEDS ORDERED: *HR* Enoxaparin 40 MG/0.4 ML SYRINGE SQ SCH (07:00)
--- NOTE | 2018-05-21 07:09 | Electrocardiograph Report ---
[address] [place], [place] [address] Test Date: 2018-05-19 Pat Name: Fam Alvarez Department: 103 Room: 3B13 Gender: M Cms Expert: TMR : 1975 Requested By: Aguilar Meeks Order Number: [id number] Reading MD: Eduard Dupont Measurements Intervals [place] Rate: 110 P: 65 CO: 159 QRS: -26 QRSD: 88 T: 62 QT: 344 QTc: 409 Interpretive Statements SINUS TACHYCARDIA INFERIOR MYOCARDIAL INFARCTION, OF INDETERMINATE AGE WITH POSTERIOR EXTENSION Electronically Signed On 05-21-2018 7:07:44 EDT by Eduard Dupont
[2018-05-21 07:12] VITALS: BP 159/86
[2018-05-21] MEDS: Nicotine 14 MG PATCH.TD24 TD SCH (08:30)
[2018-05-21] MEDS: Bumetanide 1 MG TABLET PO SCH (09:35)
[2018-05-21] MEDS: Folic Acid 1 MG TABLET PO SCH (09:35)
[2018-05-21] MEDS: Magnesium Oxide 400 MG TABLET PO SCH (09:35)
[2018-05-21] MEDS: Gabapentin 400 MG CAPSULE PO SCH (09:35)
[2018-05-21] MEDS: Lactobacillus 1 EACH CAP.SPRINK PO SCH (09:35)
[2018-05-21] MEDS: Thiamine (B-1) 100 MG TABLET PO SCH (09:35)
[2018-05-21] MEDS: Aspirin 81 MG TAB.CHEW PO SCH (09:35)
[2018-05-21] MEDS: 0.9 % Sodium Chloride 1,000 ML IVC SCH (09:36)
[2018-05-21 10:13] LABS: Hematocrit 44.1 % (37.5-50.1); Hemoglobin 15.7 g/dL (12.9-16.9); Mean Corpuscular HGB Conc 35.6 g/dL (31.6-35.5); Mean Corpuscular Hemoglobin 33.6 pg (28.0-33.3); Mean Corpuscular Volume 94.4 fL (83.0-100.0); Mean Platelet Volume 10.5 fL (9.4-12.4); Platelet Count 142 K/mcL (140-400); Red Blood Count 4.67 M/mcL (4.19-5.50); Red Cell Distribution Width 13.2 % (11.5-14.5); Segmented Neutrophils % 53.4 %
[2018-05-21 10:14] LABS: Basophils % 0.9 %; Eosinophils # 0.1 K/mcL (0.0-0.6); Eosinophils % 2.3 %; Immature Granulocytes % 0.2 % (0-4); Lymphocytes # 1.3 K/mcL (0.6-4.6); Lymphocytes % 29.8 %; Monocytes # 0.6 K/mcL (0.0-1.3); Monocytes % 13.4 %; Neutrophils # 2.3 K/mcL (1.6-8.9)
[2018-05-21 10:45] LABS: BUN/Creatinine Ratio 15 (6-26); Blood Urea Nitrogen 11 mg/dL (6-20); Calcium 8.6 mg/dL (8.6-10.3); Carbon Dioxide 20 mEq/L (23-29); Chloride 112 mEq/L (98-107); Glucose 189 mg/dL (70-105); Osmolality,Calculated 292 (280-300); Potassium 4.3 mEq/L (3.5-5.1); Sodium 139 mEq/L (136-145); eGFR For African Americans > 60 (> 60); eGFR For Non-African Americans > 60 (> 60)
[2018-05-21] MEDS ORDERED: Aminoglycoside Consult 1 EACH MC ONE (11:21)
--- NOTE | 2018-05-21 14:25 | Discharge Summary ---
- NOTES TO OUTPATIENT PROVIDER Notes to Outpatient Provider: Pt was admitted for BLE pain, cellulitis, alcohol dependence, and increasing abdominal girth. Pt was treated with IV Vancomycin and Zosyn and was getting Toradol for pain. Pt was requesting pain narcotic pain medication. Pt admits to drinking 45 beers/day as well as 1/5 of whiskey daily. He had elevated transaminases and increasing abdominal girth, known cirrhosis. RUQ ultrasound showed fatty infiltration of the liver and no acute abnormality. Recommend follow up with PCP for continued workup and treatment. Date of Encounter: 05/21/18 Time of Encounter: 00:00 - Discharge Diagnosis (1) DVT prophylaxis Priority: Secondary Status: Acute Assessment and Plan: Lovenox SQ. (2) Alcohol dependence Priority: Secondary Status: Chronic Assessment and Plan: Pt states that he drinks all day every day and drinks 45 beers and a 1/5 of whiskey daily. Pt was on Librium and was getting CIWA protocol. Pt did not get prescriptions. Pt did get 5 days worth of Ativan prior to admission from his PCP. Qualifiers: Substance use status: unspecified alcohol-induced disorder Qualified Code(s ): F10.29 - Alcohol dependence with unspecified alcohol-induced disorder (3) Alcohol withdrawal Priority: Secondary Status: Acute Assessment and Plan: CIWA protocol Librium while admitted. Seizure precautions/telemetry while admitted. IVF hydration. Qualifiers: Complication of substance-induced condition: uncomplicated Qualified Code(s ): F10.230 - Alcohol dependence with withdrawal, uncomplicated (4) Chest pain Priority: Secondary Status: Acute Assessment and Plan: Pt denied chest pain. Qualifiers: Chest pain type: unspecified Qualified Code(s): R07.9 - Chest pain, unspecified (5) Cirrhosis Priority: Secondary Status: Chronic Assessment and Plan: Chronic. Follow with PCP. Pt with increasing abdominal girth recently and elevated transaminases. RUQ ultrasound showed fatty infiltration of the liver with no acute abnormality. Qualifiers: Hepatic cirrhosis type: alcoholic cirrhosis Ascites presence: unspecified Qualified Code(s): K70.30 - Alcoholic cirrhosis of liver without ascites (6) Edema Priority: Secondary Status: Chronic Assessment and Plan: Pt with BLE edema, likely due to cirrhosis and chronic alcoholism. BLE venous doppler negative for DVT or SVT. Continue Bumex Qualifiers: Edema type: unspecified Qualified Code(s): R60.9 - Edema, unspecified (7) Hepatitis C Priority: Secondary Status: Acute Assessment and Plan: Chronic. Continue to follow with PCP. Qualifiers: Viral hepatitis chronicity: chronic Hepatic coma status: without hepatic coma Qualified Code(s): B18.2 - Chronic viral hepatitis C (8) Increased abdominal girth Priority: Secondary Status: Acute Assessment and Plan: Pt reports increasing abdominal girth recently. Pt with known hepatitis and cirrhosis with elevated transaminases. Liver ultrasound ifshowed fally infiltration of the liver with no acute abnormality Follow with PCP. (9) Alcoholism Priority: Secondary Status: Chronic Assessment and Plan: Chronic. (10) Cellulitis Priority: Primary Status: Acute Assessment and Plan: BLE. Pt reports BLE foot pain and BLE edema and redness. Pt with scattered, round, scabbed areas to BLE and bilateral feet. Pt states that it feels like something is biting him. BLE edema negative for SVT and DVT Pt was being treated with Vancomycin and Zosyn Pt signed out AMA and did not get prescriptions Qualifiers: Site of cellulitis: extremity Site of cellulitis of extremity: lower extremity Laterality: unspecified laterality Qualified Code(s): L03.119 - Cellulitis of unspecified part of limb (11) Elevated transaminase level Priority: Secondary Status: Acute Assessment and Plan: Follow with PCP. (12) Positive urine drug screen Priority: Secondary Status: Acute Assessment and Plan: Urine drug screen positive for amphetamines and marijuana. Pt admits to marijuana, denies use of amphetamines. Hospital course: Mr. Alvarez is a 43 year old male with a PMH of chronic alcoholism, cirrhosis, hepatitis C. Pt signed out AMA before I could see him. No physical exam completed. Pt did not get any prescriptions. - Time Spent with Patient Total time spent providing and/or coordinating discharge services: - Discharge Medications Home Medications: Bumetanide [Bumex] 0.5 mg PO DAILY #5 tablet 05/15/18 [Rx] Gabapentin [Neurontin] 400 mg PO TID 10 Days #30 capsule 05/15/18 [Rx] LORazepam [Ativan] 1 mg PO TID PRN 5 Days #15 tablet 05/15/18 [Rx] Potassium Chloride 10 meq PO DAILY #10 tab.er.prt 05/15/18 [Rx] Albuterol Sulfate [Albuterol Inhaler] 2 puff IH Q4H PRN 05/20/18 [History] Atorvastatin Calcium [Lipitor] 20 mg PO HS 05/20/18 [History] Cyclobenzaprine [Flexeril] 10 mg PO TID 05/20/18 [History] Metoprolol [Lopressor] 25 mg PO BID 05/20/18 [History] SitaGLIPtin [Januvia] 100 mg PO DAILY 05/20/18 [History] Tamsulosin [Flomax] 0.4 mg PO DAILY 05/20/18 [History] Umeclidinium [place] [Incruse Ellipta] 1 puff IH DAILY 05/20/18 [History] glyBURIDE [GlyBURIDE] 5 mg PO DAILY 05/20/18 [History] Allergies/Adverse Reactions: 3 Allergy/AdvReac Type Severity Reaction Status Date / Time metformin Allergy See Verified 05/20/18 14:24 Comments Date of admission: 05/19/18 21:56 Primary care physician: PCP NONE Consults: 05/19/18 22:56 Consult to [facility] [CONS] Routine Reason for SW Consult: discharge planning Discharging clinician: Kellie Tang Anticipated date of discharge: 05/21/18 - Constitutional Vitals: Temp Pulse Resp BP Pulse Ox 97.8 F 67 14 159/86 99 05/21/18 07:11 05/21/18 07:11 05/21/18 07:11 05/21/18 07:11 05/21/18 07:11 General appearance: Present: cooperative, A&O X 3, pleasant, no acute distress, answers questions appropriately - Patient Status Disposition: Left Against Medical Advice Condition: Fair Functional capacity at discharge: independent ambulation Overall status at discharge: patient is progressing back to baseline - Discharge Instructions Follow Up With: Samantha Giron RETORT CONDENSER ATTENDANT [Advanced Practice Nurse] - 05/22/18 10:15 am
== END 2018-05-21 11:22 | disposition left against medical advice (07) ==
LOC: 3BNU 17:39 → EMEROO 17:39 → 3BNU 22:19
PROVIDERS: ADMIT Internal Medicine; ATTEND Internal Medicine Nephrology

== ENCOUNTER 2021-07-20 22:50 | Inpatient (IN) ==
[2021-07-21] MEDS ORDERED: Artificial Tears SOLN 15 ML BOTTLE BOTH EYES PRN (04:01)
[2021-07-21] MEDS ORDERED: Heparin 25,000UNIT/250ML 1/2NS 25,000 UNIT/250 ML IV.SOLN IVC SCH (04:15)
[2021-07-21] MEDS ORDERED: Naloxone 0.4 MG/ML INJ IVP PRN (04:27)
[2021-07-21] MEDS ORDERED: Perflutren Lipid Microsphere 1.3 ML in 0.9 % Sodium Chloride 8.7 ML IVP PRN (04:29)
[2021-07-21] MEDS: FentaNYL (PF) 1,000 MCG/100 ML IV.SOLN IVC SCH ×3 (04:34→19:36)
[2021-07-21] MEDS: Norepinephrine 4 MG/254 ML IV.SOLN IVC SCH ×3 (04:34→23:37)
[2021-07-21] MEDS ORDERED: *HR* LORazepam 2 MG/ML VIAL ONE (04:37)
[2021-07-21 04:38] LABS: ABG Base Excess -10 mEq/L (-2 to 3); ABG HCO3 16 mEq/L (21-27); ABG Oxygen Saturation 96 % (95-98); ABG PCO2 36 mmHg (35-45); ABG PH 7.26 pH Units (7.32-7.45); ABG PO2 94 mmHg (85-104); ABG TCO2 17 mEq/L (20-26); Blood Gas VT 480 cc
[2021-07-21] MEDS ORDERED: *HR* LORazepam 2 MG/ML VIAL IVP ONE (04:39)
[2021-07-21] MEDS ORDERED: *HR* Dextrose 50 % in Water (Vial) 50 ML VIAL ONE (04:42)
[2021-07-21] MEDS ORDERED: Sodium Bicarbonate 150 MEQ in D5% in Water 1,000 ML IVC SCH (05:00)
[2021-07-21 05:04] LABS: Hematocrit 38.4 % (37.5-50.1); Hemoglobin 12.9 g/dL (12.9-16.9); Mean Corpuscular HGB Conc 33.6 g/dL (31.6-35.5); Mean Corpuscular Hemoglobin 32.8 pg (28.0-33.3); Mean Corpuscular Volume 97.7 fL (83.0-100.0); Platelet Count 217 K/mcL (140-400); Red Blood Count 3.93 M/mcL (4.19-5.50); Red Cell Distribution Width 12.2 % (11.5-14.5); White Blood Count 11.2 K/mcL (4.3-11.1)
[2021-07-21 05:12] LABS: Heparin anti-factor XA UFH 0.2 IU/mL (0.30-0.70); INR 2.1; Prothrombin Time 23.5 Seconds (9.4-12.1)
[2021-07-21 05:38] LABS: Alanine Aminotransferase 4419 Units/L (7-52); Albumin 3.2 g/dL (3.5-5.7); Albumin/Globulin Ratio 1.5 (1.1-2.2); Alkaline Phosphatase 120 Units/L (34-104); Aspartate Amino Transferase > 3000 Units/L (13-39); Bilirubin,Direct 2.2 mg/dL (0.0-0.2); Bilirubin,Indirect 0.7 mg/dL (0.0-1.0); Bilirubin,Total 2.9 mg/dL (0.3-1.0); Globulin 2.1 g/dL (2.4-3.5); Total Protein 5.3 g/dL (6.4-8.9)
[2021-07-21] MEDS ORDERED: *HR* Dextrose 50 % in Water (Vial) 50 ML VIAL IVP ONE (06:00)
[2021-07-21 06:32] LABS: Adenovirus Not Detected (Not Detect); Bordetella Pertussis Not Detected (Not Detect); Chlamydophila pneumoniae Not Detected (Not Detect); Coronavirus 229E Not Detected (Not Detect); Coronavirus HKU1 Not Detected (Not Detect); Coronavirus NL63 Not Detected (Not Detect); Coronavirus OC43 Not Detected (Not Detect); Human Metapneumovirus Not Detected (Not Detect); Human Rhinovirus/Enterovirus DETECTED (Not Detect); Influenza A Subtype 2009 H1 Not Detected (Not Detect); Influenza B Not Detected (Not Detect); Mycoplasma pneumoniae Not Detected (Not Detect); Parainfluenza Virus 1 Not Detected (Not Detect); Parainfluenza Virus 2 Not Detected (Not Detect); Parainfluenza Virus 3 Not Detected (Not Detect); Parainfluenza Virus 4 Not Detected (Not Detect); Respiratory Syncytial Virus Not Detected (Not Detect); SARS-CoV-2 Not Detected (Not Detect)
[2021-07-21] MEDS ORDERED: Dextrose Gel 15 GM/37.5 ML TUBE PO PRN ×4 (07:03→18:30)
[2021-07-21] MEDS ORDERED: D5% in Water 1,000 ML IVC PRN ×2 (07:03→18:30)
[2021-07-21] MEDS ORDERED: *HR* Dextrose 50 % in Water (Vial) 50 ML VIAL IVP PRN ×2 (07:03→18:30)
[2021-07-21] MEDS ORDERED: *HR* Heparin 5,000 UNIT/ML VIAL IVP PRN ×2 (07:27)
[2021-07-21] MEDS: Midazolam HCl 50 MG/100 ML IV.SOLN IVC SCH (07:35)
[2021-07-21] MEDS: Piperacillin/Tazobactam 3.375 GM in 0.9 % Sodium Chloride Mini Bag 100 ML IVPB SCH ×3 (07:58→23:37)
[2021-07-21] MEDS: Artificial Tears SOLN 15 ML BOTTLE BOTH EYES SCH ×5 (07:59→23:19)
[2021-07-21] MEDS: Pantoprazole 40 MG VIAL IVP SCH (07:59)
[2021-07-21] MEDS: Chlorhexidine Rinse 15 ML MOUTHWASH MM SCH ×2 (07:59→19:59)
[2021-07-21] MEDS ORDERED: Vancomycin 1,500 MG/265 ML IV.SOLN IVPB ONE (08:10)
[2021-07-21 08:34] LABS: Hematocrit 38.2 % (37.5-50.1); Hemoglobin 13.2 g/dL (12.9-16.9); Mean Corpuscular HGB Conc 34.6 g/dL (31.6-35.5); Mean Corpuscular Hemoglobin 32.9 pg (28.0-33.3); Mean Corpuscular Volume 95.3 fL (83.0-100.0); Mean Platelet Volume 10.1 fL (9.4-12.4); Nucleated Red Blood Cells 0.4 /100 WBC (0); Platelet Count 199 K/mcL (140-400); Red Blood Count 4.01 M/mcL (4.19-5.50); Red Cell Distribution Width 12.1 % (11.5-14.5); White Blood Count 7.7 K/mcL (4.3-11.1)
[2021-07-21 08:35] LABS: VBG Ionized Calcium 0.86 mmol/L (1.15-1.35)
[2021-07-21 09:39] LABS: Large Platelets Present (Not Present); Lymphocytes # 0.7 K/mcL (0.6-4.6); Monocytes # 0.3 K/mcL (0.0-1.3); Neutrophils # 6.6 K/mcL (1.6-8.9); Platelet Estimate Normal (Normal); Toxic Vacuolation Present (Not Present)
[2021-07-21] MEDS ORDERED: WATER IVC ONE ×2 (10:00→11:00)
[2021-07-21] MEDS ORDERED: D5 IVC ONE ×2 (10:00→11:00)
[2021-07-21] MEDS ORDERED: ACETYLCYSTEINE IVC ONE ×2 (10:00→11:00)
[2021-07-21 11:08] LABS: Acetaminophen < 10 mcg/mL (10-20); Salicylate < 10.0 mg/dL (15.0-30.0)
[2021-07-21 11:10] LABS: Alanine Aminotransferase 4689 Units/L (7-52); Albumin 3.1 g/dL (3.5-5.7); Albumin/Globulin Ratio 1.4 (1.1-2.2); Alkaline Phosphatase 115 Units/L (34-104); Aspartate Amino Transferase > 3000 Units/L (13-39); BUN/Creatinine Ratio 15 (6-26); Bilirubin,Direct 2.8 mg/dL (0.0-0.2); Bilirubin,Indirect 0.9 mg/dL (0.0-1.0); Bilirubin,Total 3.7 mg/dL (0.3-1.0); Blood Urea Nitrogen 30 mg/dL (6-20); Calcium 7.1 mg/dL (8.6-10.3); Carbon Dioxide 20 mEq/L (23-29); Chloride 104 mEq/L (98-107); Globulin 2.2 g/dL (2.4-3.5); Glucose 168 mg/dL (70-105); Osmolality,Calculated 304 (280-300); Potassium 4.3 mEq/L (3.5-5.1); Sodium 142 mEq/L (136-145); Total Protein 5.3 g/dL (6.4-8.9); eGFR For African Americans 44 (> 60); eGFR For Non-African Americans 36 (> 60)
[2021-07-21] MEDS ORDERED: Calcium Chloride 2,000 MG in 0.9 % Sodium Chloride 100 ML IVPB ONE (14:30)
[2021-07-21 14:52] LABS: INR 2.5; Prothrombin Time 28.3 Seconds (9.4-12.1)
[2021-07-21 15:00] LABS: VBG Ionized Calcium 0.83 mmol/L (1.15-1.35)
[2021-07-21] MEDS: ACETYLCYSTEINE IVC SCH (15:01)
[2021-07-21] MEDS: WATER IVC SCH (15:01)
[2021-07-21] MEDS: D5 IVC SCH (15:01)
[2021-07-21 15:52] LABS: Alanine Aminotransferase 4524 Units/L (7-52); Albumin 2.8 g/dL (3.5-5.7); Albumin/Globulin Ratio 1.3 (1.1-2.2); Alkaline Phosphatase 94 Units/L (34-104); Aspartate Amino Transferase > 3000 Units/L (13-39); BUN/Creatinine Ratio 14 (6-26); Bilirubin,Total 4.3 mg/dL (0.3-1.0); Blood Urea Nitrogen 36 mg/dL (6-20); Calcium 6.9 mg/dL (8.6-10.3); Carbon Dioxide 19 mEq/L (23-29); Chloride 101 mEq/L (98-107); Globulin 2.2 g/dL (2.4-3.5); Glucose 185 mg/dL (70-105); Osmolality,Calculated 307 (280-300); Potassium 4.4 mEq/L (3.5-5.1); Sodium 142 mEq/L (136-145); eGFR For African Americans 33 (> 60); eGFR For Non-African Americans 27 (> 60)
[2021-07-21 16:20] LABS: ABG Base Excess -6 mEq/L (-2 to 3); ABG HCO3 19 mEq/L (21-27); ABG Oxygen Saturation 91 % (95-98); ABG PCO2 36 mmHg (35-45); ABG PH 7.33 pH Units (7.32-7.45); ABG PO2 64 mmHg (85-104); ABG TCO2 20 mEq/L (20-26); Blood Gas VT 480 cc
[2021-07-21] MEDS: Doxycycline 100 MG in 0.9 % Sodium Chloride Mini Bag 100 ML IVPB SCH (17:19)
[2021-07-21] MEDS: Ringers Solution, Lactated 1,000 ML IVC SCH (19:30)
[2021-07-21] MEDS: Insulin LISPRO 300 UNITS/3 ML VIAL SUBQ SCH ×2 (19:59→23:36)
[2021-07-21 20:01] LABS: Basophils % 0.2 %; Hematocrit 35.9 % (37.5-50.1); Hemoglobin 12.5 g/dL (12.9-16.9); Immature Granulocytes % 0.7 % (0-4); Lymphocytes # 0.9 K/mcL (0.6-4.6); Lymphocytes % 6.8 %; Mean Corpuscular HGB Conc 34.8 g/dL (31.6-35.5); Mean Corpuscular Hemoglobin 33.3 pg (28.0-33.3); Mean Corpuscular Volume 95.7 fL (83.0-100.0); Mean Platelet Volume 10.5 fL (9.4-12.4); Monocytes # 0.3 K/mcL (0.0-1.3); Neutrophils # 11.5 K/mcL (1.6-8.9); Nucleated Red Blood Cells 0.4 /100 WBC (0); Platelet Count 146 K/mcL (140-400); Red Blood Count 3.75 M/mcL (4.19-5.50); Red Cell Distribution Width 12.5 % (11.5-14.5); Segmented Neutrophils % 90.3 %
[2021-07-21 20:04] LABS: White Blood Count 12.7 K/mcL (4.3-11.1)
[2021-07-21 20:18] LABS: D-Dimer 122496 ng/mLFEU (0-500); Fibrinogen 94 mg/dL (169-393)
[2021-07-21 20:27] LABS: Reactive Lymphocytes Present (Not Present); Smudge Cells Present (Not Present)
[2021-07-21] MEDS ORDERED: 0.9 % Sodium Chloride 250 ML IVC SCH (20:45)
[2021-07-21] MEDS ORDERED: Vancomycin 1,500 MG/265 ML IV.SOLN IVPB SCH (21:00)
[2021-07-22] MEDS: FentaNYL (PF) 1,000 MCG/100 ML IV.SOLN IVC SCH ×3 (00:58→23:13)
[2021-07-22] MEDS: Ringers Solution, Lactated 1,000 ML IVC SCH (02:25)
[2021-07-22 03:28] LABS: Hematocrit 32.8 % (37.5-50.1); Hemoglobin 11.5 g/dL (12.9-16.9); Mean Corpuscular HGB Conc 35.1 g/dL (31.6-35.5); Mean Corpuscular Hemoglobin 34.2 pg (28.0-33.3); Mean Corpuscular Volume 97.6 fL (83.0-100.0); Mean Platelet Volume 10.8 fL (9.4-12.4); Nucleated Red Blood Cells 0.3 /100 WBC (0); Platelet Count 123 K/mcL (140-400); Red Blood Count 3.36 M/mcL (4.19-5.50); Red Cell Distribution Width 12.5 % (11.5-14.5); White Blood Count 13.2 K/mcL (4.3-11.1)
[2021-07-22 03:32] LABS: Prothrombin Time 22.7 Seconds (9.4-12.1)
[2021-07-22] MEDS: Phenylephrine 10 MG in 0.9 % Sodium Chloride 250 ML IVC SCH ×4 (03:45→15:02)
[2021-07-22] MEDS: Insulin LISPRO 300 UNITS/3 ML VIAL SUBQ SCH ×5 (03:46→21:09)
[2021-07-22] MEDS: Artificial Tears SOLN 15 ML BOTTLE BOTH EYES SCH ×5 (03:46→21:03)
[2021-07-22] MEDS: Midazolam HCl 50 MG/100 ML IV.SOLN IVC SCH (03:46)
[2021-07-22 03:59] LABS: Alanine Aminotransferase 3692 Units/L (7-52); Albumin 2.9 g/dL (3.5-5.7); Albumin/Globulin Ratio 1.3 (1.1-2.2); Alkaline Phosphatase 97 Units/L (34-104); Aspartate Amino Transferase > 3000 Units/L (13-39); BUN/Creatinine Ratio 12 (6-26); Bilirubin,Total 5.4 mg/dL (0.3-1.0); Blood Urea Nitrogen 41 mg/dL (6-20); Calcium 7.9 mg/dL (8.6-10.3); Carbon Dioxide 17 mEq/L (23-29); Chloride 101 mEq/L (98-107); Globulin 2.2 g/dL (2.4-3.5); Glucose 67 mg/dL (70-105); Magnesium 2.2 mg/dL (1.6-2.6); Osmolality,Calculated 300 (280-300); Potassium 4.9 mEq/L (3.5-5.1); Sodium 141 mEq/L (136-145); Total Protein 5.1 g/dL (6.4-8.9); eGFR For African Americans 24 (> 60); eGFR For Non-African Americans 20 (> 60)
[2021-07-22 04:00] LABS: Monocytes # 0.3 K/mcL (0.0-1.3); Neutrophils # 12.7 K/mcL (1.6-8.9); Platelet Estimate Slight Decrease (Normal); Smudge Cells Present (Not Present)
[2021-07-22 04:42] LABS: ABG Base Excess -7 mEq/L (-2 to 3); ABG HCO3 19 mEq/L (21-27); ABG Oxygen Saturation 89 % (95-98); ABG PCO2 37 mmHg (35-45); ABG PH 7.32 pH Units (7.32-7.45); ABG PO2 60 mmHg (85-104); ABG TCO2 20 mEq/L (20-26); Blood Gas VT 480 cc
[2021-07-22] MEDS: Doxycycline 100 MG in 0.9 % Sodium Chloride Mini Bag 100 ML IVPB SCH ×2 (05:17→16:51)
[2021-07-22] MEDS: Pantoprazole 40 MG VIAL IVP SCH (05:17)
[2021-07-22] MEDS: Calcium Gluconate 1gm/50mL 1 GM/50 ML BAG IVPB PRN (06:11)
[2021-07-22] MEDS: Piperacillin/Tazobactam 3.375 GM in 0.9 % Sodium Chloride Mini Bag 100 ML IVPB SCH ×2 (09:00→16:50)
[2021-07-22] MEDS: Chlorhexidine Rinse 15 ML MOUTHWASH MM SCH ×2 (09:17→21:06)
[2021-07-22] MEDS: Sodium Bicarbonate 150 MEQ in D5% in Water 1,000 ML IVC SCH (09:41)
[2021-07-22] MEDS ORDERED: 0.9 % Sodium Chloride 1,000 ML PRIME SCH (10:00)
[2021-07-22] MEDS ORDERED: PrismaSATE BGK 4/2.5 5,000 ML CRRT SCH ×2 (10:00)
[2021-07-22] MEDS ORDERED: 0.9 % Sodium Chloride 1,000 ML PRIME ONE ×2 (10:00)
[2021-07-22] MEDS ORDERED: *HR* Heparin 5,000 UNIT/ML VIAL IVP PRN (10:00)
[2021-07-22] MEDS ORDERED: *HR* Alteplase (Cathflo) 2 MG VIAL IVP PRN (10:00)
[2021-07-22 10:01] LABS: INR 2.2; Prothrombin Time 25.1 Seconds (9.4-12.1)
[2021-07-22 10:28] LABS: Hematocrit 32.1 % (37.5-50.1); Red Cell Distribution Width 12.6 % (11.5-14.5)
[2021-07-22 10:29] LABS: Hemoglobin 10.7 g/dL (12.9-16.9); Immature Platelets 7.3 % (1.1-6.1); Mean Corpuscular HGB Conc 33.3 g/dL (31.6-35.5); Mean Corpuscular Hemoglobin 33.3 pg (28.0-33.3); Mean Platelet Volume 11.2 fL (9.4-12.4); Nucleated Red Blood Cells 0.7 /100 WBC (0); Platelet Count 101 K/mcL (140-400); Red Blood Count 3.21 M/mcL (4.19-5.50); White Blood Count 10.4 K/mcL (4.3-11.1)
[2021-07-22 10:29] LABS: Adenovirus Not Detected (Not Detect); Bordetella Pertussis Not Detected (Not Detect); Chlamydophila pneumoniae Not Detected (Not Detect); Coronavirus 229E Not Detected (Not Detect); Coronavirus HKU1 Not Detected (Not Detect); Coronavirus NL63 Not Detected (Not Detect); Coronavirus OC43 Not Detected (Not Detect); Human Metapneumovirus Not Detected (Not Detect); Human Rhinovirus/Enterovirus DETECTED (Not Detect); Influenza A Subtype 2009 H1 Not Detected (Not Detect); Influenza B Not Detected (Not Detect); Mycoplasma pneumoniae Not Detected (Not Detect); Parainfluenza Virus 1 Not Detected (Not Detect); Parainfluenza Virus 2 Not Detected (Not Detect); Parainfluenza Virus 3 Not Detected (Not Detect); Parainfluenza Virus 4 Not Detected (Not Detect); Respiratory Syncytial Virus Not Detected (Not Detect); SARS-CoV-2 Not Detected (Not Detect)
[2021-07-22] MEDS ORDERED: Calcium Chloride 1,000 MG in 0.9 % Sodium Chloride 100 ML IVPB ONE (11:00)
[2021-07-22 11:04] LABS: Lymphocytes # 0.8 K/mcL (0.6-4.6); Monocytes # 0.1 K/mcL (0.0-1.3); Neutrophils # 9.2 K/mcL (1.6-8.9)
[2021-07-22 11:07] LABS: Smudge Cells Present (Not Present)
[2021-07-22 11:08] LABS: Platelet Estimate Decreased (Normal)
[2021-07-22] MEDS ORDERED: Heparin 1,000 UNITS/500 mL 500 ML ONE (11:36)
[2021-07-22 12:19] LABS: Calcium 7.7 mg/dL (8.6-10.3); Magnesium 2.2 mg/dL (1.6-2.6); Phosphorous 6.1 mg/dL (2.7-4.5); Potassium 5.1 mEq/L (3.5-5.1)
[2021-07-22] MEDS ORDERED: 0.9 % Sodium Chloride 500 ML ONE (12:59)
[2021-07-22] MEDS: Lactulose Oral Soln 20 GM/30 ML UDC PO SCH ×2 (13:30→21:02)
[2021-07-22] MEDS ORDERED: *HR* Heparin 5,000 UNIT/ML VIAL ONE (13:42)
[2021-07-22] MEDS ORDERED: 0.9 % Sodium Chloride 250 ML ONE (14:41)
[2021-07-22] MEDS: D5 IVC SCH (16:51)
[2021-07-22] MEDS: WATER IVC SCH (16:51)
[2021-07-22] MEDS: ACETYLCYSTEINE IVC SCH (16:51)
[2021-07-22] MEDS: Dexmedetomidine HCl 400 MCG/100 ML MLS IVC SCH (18:42)
[2021-07-22] MEDS: Phenylephrine 50 MG in 0.9 % Sodium Chloride 250 ML IVC SCH (21:14)
[2021-07-23] MEDS: Phenylephrine 50 MG in 0.9 % Sodium Chloride 250 ML IVC SCH
[2021-07-23] MEDS: Insulin LISPRO 300 UNITS/3 ML VIAL SUBQ SCH ×7 (00:37→23:38)
[2021-07-23] MEDS: Artificial Tears SOLN 15 ML BOTTLE BOTH EYES SCH ×7 (00:39→23:37)
[2021-07-23] MEDS: Piperacillin/Tazobactam 3.375 GM in 0.9 % Sodium Chloride Mini Bag 100 ML IVPB SCH ×4 (00:39→23:38)
[2021-07-23] MEDS: Sodium Bicarbonate 150 MEQ in D5% in Water 1,000 ML IVC SCH ×2 (01:45→16:01)
[2021-07-23 03:25] LABS: VBG Ionized Calcium 0.97 mmol/L (1.15-1.35)
[2021-07-23 03:26] LABS: Hemoglobin 9.4 g/dL (12.9-16.9)
[2021-07-23 03:28] LABS: Hematocrit 27.6 % (37.5-50.1); Immature Platelets 7.3 % (1.1-6.1); Mean Corpuscular HGB Conc 34.1 g/dL (31.6-35.5); Mean Corpuscular Hemoglobin 33.1 pg (28.0-33.3); Mean Corpuscular Volume 97.2 fL (83.0-100.0); Mean Platelet Volume 11.4 fL (9.4-12.4); Nucleated Red Blood Cells 0.9 /100 WBC (0); Red Blood Count 2.84 M/mcL (4.19-5.50); Red Cell Distribution Width 12.4 % (11.5-14.5); White Blood Count 6.9 K/mcL (4.3-11.1)
[2021-07-23 03:54] LABS: Platelet Count 74 K/mcL (140-400)
[2021-07-23 03:57] LABS: Monocytes # 0.3 K/mcL (0.0-1.3); Neutrophils # 5.7 K/mcL (1.6-8.9); Platelet Estimate Decreased (Normal)
[2021-07-23 03:59] LABS: Alanine Aminotransferase 2336 Units/L (7-52); Albumin 2.6 g/dL (3.5-5.7); Albumin/Globulin Ratio 1.4 (1.1-2.2); Alkaline Phosphatase 80 Units/L (34-104); Aspartate Amino Transferase > 3000 Units/L (13-39); BUN/Creatinine Ratio 11 (6-26); Bilirubin,Total 5.9 mg/dL (0.3-1.0); Blood Urea Nitrogen 49 mg/dL (6-20); Calcium 7.6 mg/dL (8.6-10.3); Carbon Dioxide 26 mEq/L (23-29); Chloride 100 mEq/L (98-107); Globulin 1.9 g/dL (2.4-3.5); Glucose 120 mg/dL (70-105); Magnesium 2.2 mg/dL (1.6-2.6); Osmolality,Calculated 308 (280-300); Sodium 142 mEq/L (136-145); Total Protein 4.5 g/dL (6.4-8.9); eGFR For African Americans 17 (> 60); eGFR For Non-African Americans 14 (> 60)
[2021-07-23] MEDS: Midazolam HCl 50 MG/100 ML IV.SOLN IVC SCH ×2 (04:34→23:04)
[2021-07-23 04:35] LABS: ABG Base Excess 1 mEq/L (-2 to 3); ABG HCO3 27 mEq/L (21-27); ABG Oxygen Saturation 86 % (95-98); ABG PCO2 50 mmHg (35-45); ABG PH 7.34 pH Units (7.32-7.45); ABG PO2 55 mmHg (85-104); ABG TCO2 29 mEq/L (20-26); Blood Gas Modality ASSIST CONTROL; Blood Gas VT 480 cc
[2021-07-23] MEDS: Doxycycline 100 MG in 0.9 % Sodium Chloride Mini Bag 100 ML IVPB SCH ×2 (05:35→17:54)
[2021-07-23] MEDS: Pantoprazole 40 MG VIAL IVP SCH (05:44)
[2021-07-23] MEDS: FentaNYL (PF) 1,000 MCG/100 ML IV.SOLN IVC SCH ×2 (06:20→19:59)
[2021-07-23] MEDS: Calcium Gluconate 1gm/50mL 1 GM/50 ML BAG IVPB PRN (06:51)
[2021-07-23] MEDS: Lactulose Oral Soln 20 GM/30 ML UDC PO SCH ×2 (07:55→19:54)
[2021-07-23] MEDS: Chlorhexidine Rinse 15 ML MOUTHWASH MM SCH ×2 (07:55→19:54)
[2021-07-23] MEDS ORDERED: Calcium Chloride 2,000 MG in 0.9 % Sodium Chloride 100 ML IVPB ONE (09:00)
[2021-07-23] MEDS ORDERED: *HR* Heparin 5,000 UNIT/ML VIAL IVP PRN (09:33)
[2021-07-23] MEDS ORDERED: 0.9 % Sodium Chloride 1,000 ML PRIME SCH (09:45)
[2021-07-23] MEDS ORDERED: 0.9 % Sodium Chloride 1,000 ML ONE (09:52)
[2021-07-23] MEDS: PrismaSATE BGK 4/2.5 5,000 ML CRRT SCH ×7 (11:35→23:41)
[2021-07-23] MEDS: Dexmedetomidine HCl 400 MCG/100 ML MLS IVC SCH (13:58)
[2021-07-23] MEDS: ACETYLCYSTEINE IVC SCH (14:51)
[2021-07-23] MEDS: WATER IVC SCH (14:51)
[2021-07-23] MEDS: D5 IVC SCH (14:51)
[2021-07-23 17:58] LABS: VBG Ionized Calcium 1.08 mmol/L (1.15-1.35)
[2021-07-23 18:11] LABS: INR 2.1; Prothrombin Time 23.6 Seconds (9.4-12.1)
[2021-07-24] MEDS: Insulin LISPRO 300 UNITS/3 ML VIAL SUBQ SCH ×4 (03:39→15:58)
[2021-07-24] MEDS: PrismaSATE BGK 4/2.5 5,000 ML CRRT SCH ×6 (03:39→12:50)
[2021-07-24] MEDS: Artificial Tears SOLN 15 ML BOTTLE BOTH EYES SCH ×5 (03:39→17:39)
[2021-07-24 03:43] LABS: Hematocrit 28.4 % (37.5-50.1); Hemoglobin 9.7 g/dL (12.9-16.9); Immature Platelets 8.7 % (1.1-6.1); Mean Corpuscular HGB Conc 34.2 g/dL (31.6-35.5); Mean Corpuscular Hemoglobin 32.2 pg (28.0-33.3); Mean Corpuscular Volume 94.4 fL (83.0-100.0); Mean Platelet Volume 11.9 fL (9.4-12.4); Nucleated Red Blood Cells 0.4 /100 WBC (0); Red Blood Count 3.01 M/mcL (4.19-5.50); Red Cell Distribution Width 12.5 % (11.5-14.5)
[2021-07-24 03:44] LABS: Platelet Count 72 K/mcL (140-400)
[2021-07-24 04:05] LABS: INR 1.7; Prothrombin Time 19.4 Seconds (9.4-12.1)
[2021-07-24 04:21] LABS: Lymphocytes # 0.9 K/mcL (0.6-4.6); Monocytes # 0.5 K/mcL (0.0-1.3); Neutrophils # 7.6 K/mcL (1.6-8.9); Platelet Estimate Decreased (Normal)
[2021-07-24 04:22] LABS: Albumin 2.5 g/dL (3.5-5.7); Albumin/Globulin Ratio 1.3 (1.1-2.2); Bilirubin,Total 8.2 mg/dL (0.3-1.0); Calcium 7.6 mg/dL (8.6-10.3); Globulin 1.9 g/dL (2.4-3.5); Magnesium 2.2 mg/dL (1.6-2.6); Phosphorous 2.7 mg/dL (2.7-4.5); Total Protein 4.4 g/dL (6.4-8.9)
[2021-07-24 04:37] LABS: ABG Base Excess 3 mEq/L (-2 to 3); ABG HCO3 28 mEq/L (21-27); ABG Oxygen Saturation 89 % (95-98); ABG PCO2 45 mmHg (35-45); ABG PO2 58 mmHg (85-104); ABG TCO2 29 mEq/L (20-26); Blood Gas VT 480 cc
[2021-07-24] MEDS: Doxycycline 100 MG in 0.9 % Sodium Chloride Mini Bag 100 ML IVPB SCH ×2 (05:08→17:39)
[2021-07-24] MEDS: Pantoprazole 40 MG VIAL IVP SCH ×2 (05:14→19:25)
[2021-07-24] MEDS ORDERED: Vancomycin 1,250 MG/262.5 ML IV.SOLN IVPB ONE (06:00)
[2021-07-24] MEDS: Sodium Bicarbonate 150 MEQ in D5% in Water 1,000 ML IVC SCH (06:57)
[2021-07-24] MEDS: Chlorhexidine Rinse 15 ML MOUTHWASH MM SCH (07:47)
[2021-07-24] MEDS: Lactulose Oral Soln 20 GM/30 ML UDC PO SCH (07:48)
[2021-07-24] MEDS: Piperacillin/Tazobactam 3.375 GM in 0.9 % Sodium Chloride Mini Bag 100 ML IVPB SCH ×2 (07:52→15:58)
[2021-07-24 13:07] VITALS: TEMP 97.6
[2021-07-24] MEDS: Midazolam HCl 50 MG/100 ML IV.SOLN IVC SCH (13:08)
[2021-07-24] MEDS: Phenylephrine 50 MG in 0.9 % Sodium Chloride 250 ML IVC SCH (15:58)
[2021-07-24] MEDS: FentaNYL (PF) 1,000 MCG/100 ML IV.SOLN IVC SCH (16:29)
[2021-07-24] MEDS: *HR* LORazepam 2 MG/ML VIAL IVP PRN ×2 (16:39→18:58)
[2021-07-24] MEDS ORDERED: Atropine 1% Opth Drops 100 DROP/5 ML BOTTLE SL PRN (16:47)
[2021-07-24 18:16] VITALS: BP 104/53
[2021-07-24] MEDS ORDERED: Morphine Sulfate 2 MG/ML SYRINGE IVP PRN (18:24)
[2021-07-24] MEDS ORDERED: *HR* LORazepam 2 MG/ML VIAL IVP PRN (18:36)
[2021-07-24 19:17] VITALS: PULSE 144; O2SAT 55
== END 2021-07-24 21:38 | disposition expired | DRG 871 ==
LOC: ICNU → OBSVTOIN 07-21 03:43
PROVIDERS: ADMIT Student in an Organized Health Care Education/Training Program; ATTEND Student in an Organized Health Care Education/Training Program